=== PATIENT | male | born 1990 | race Caucasian/White ===

== ENCOUNTER 2023-08-25 19:06 | Inpatient (IN) | payer SELFPAY ==
[2023-08-25] MEDS ORDERED: MAG HYDROX/AL HYDROX/SIMETH 30 ML UNIT-DOSE CUP ONE (20:03)
[2023-08-25] MEDS ORDERED: ONDANSETRON 4 MG/2 ML VIAL ONE (20:03)
[2023-08-25] MEDS ORDERED: FAMOTIDINE 20 MG/50 ML IVPB 20 MG/50 ML MG IVPB ONE (20:03)
[2023-08-25] MEDS ORDERED: ACETAMINOPHEN INJECTION 100 ML IVPB ONE (20:03)
[2023-08-25] MEDS: ACETAMINOPHEN 1000 MG/100 ML BAG IVPB ONE (20:26)
[2023-08-25] MEDS: ONDANSETRON 4 MG/2 ML VIAL IVPUSH ONE (20:26)
[2023-08-25] MEDS: FAMOTIDINE 20 MG/50 ML IVPB 20 MG/50 ML MG IVPB ONE (20:26)
[2023-08-25] MEDS: LACTATED RINGERS SOLUTION 1000 ML INFUS.BAG IV ONE (20:27)
[2023-08-25] MEDS: MAG HYDROX/AL HYDROX/SIMETH 30 ML UNIT-DOSE CUP PO ONE (20:27)
[2023-08-25 20:33] LABS: BASO % 0.5 % (0-2.0); EOS % 0.1 % (0-4.5); HEMATOCRIT 45.7 % (35.4-49); LYMPH % 9.3 % (8-40); MCH 30.2 pg (25.7-33.7); MCHC 34.9 g/dl (32.0-35.9); MEAN CELL VOLUME 86.6 fl (80-96); MEAN PLT VOLUME 8.3 fl (7.5-11.1); MONO % 5.1 % (3.8-10.2); PLATELET COUNT 229 10^3/uL (134-434); RBC 5.28 M/mm3 (4.00-5.60); RDW 13.4 % (11.9-15.9)
[2023-08-25 20:46] LABS: POTASSIUM 4.5 mmol/L (3.5-5.1)
[2023-08-25 20:48] LABS: CALCIUM 9.4 mg/dL (8.5-10.1)
[2023-08-25 20:49] LABS: ALBUMIN 3.8 g/dl (3.4-5.0); BLOOD UREA NITROGEN 9.9 mg/dL (7-18); MAGNESIUM 2.2 mg/dL (1.8-2.4)
[2023-08-25 20:50] LABS: CREATININE 0.9 mg/dL (0.55-1.3)
[2023-08-25 20:53] LABS: BILIRUBIN,TOTAL 1.6 mg/dL (0.2-1); TOT PROT 7.8 g/dl (6.4-8.2)
[2023-08-25 20:56] LABS: LACTIC ACID 2.3 mmol/L (0.4-2.0)
[2023-08-25 22:02] LABS: VENOUS BASE EXCESS 2.2 mmol/L (-2-2); VENOUS O2 SATURATION 95.6 % (70-80); VENOUS PCO2 36.9 mmHg (38-52); VENOUS PH 7.462 (7.310-7.410)
[2023-08-26] MEDS ORDERED: morphine SULFATE 4 MG/ML VIAL ONE (00:18)
[2023-08-26] MEDS ORDERED: PIPERACILLIN/TAZOB 4.5 GM 4.5 GM/100 ML BAG IVPB ONE (00:21)
[2023-08-26] MEDS: PIPERACILLIN/TAZOB 4.5 GM 4.5 GM in DEXTROSE 5%-WATER 100 ML IVPB ONE (00:40)
[2023-08-26] MEDS: morphine CARPU-JECT 4 MG/1 ML DISP.SYRIN IVPUSH ONE (00:41)
[2023-08-26] MEDS: DEXTROSE 5%-NORMAL SALINE 1,000 ML IV SCH (00:41)
[2023-08-26 01:09] LABS: POTASSIUM 3.6 mmol/L (3.5-5.1)
[2023-08-26 01:11] LABS: CALCIUM 8.8 mg/dL (8.5-10.1)
[2023-08-26 01:13] LABS: ALBUMIN 3.5 g/dl (3.4-5.0); BLOOD UREA NITROGEN 8.8 mg/dL (7-18)
[2023-08-26 01:15] LABS: CREATININE 0.7 mg/dL (0.55-1.3)
[2023-08-26 01:17] LABS: TOT PROT 7.1 g/dl (6.4-8.2)
[2023-08-26 01:18] LABS: BILIRUBIN,TOTAL 1.6 mg/dL (0.2-1)
[2023-08-26] MEDS ORDERED: NAPROXEN 500 MG TABLET ONE (01:26)
[2023-08-26] MEDS: SODIUM CHLORIDE 1,000 ML IV SCH ×2 (01:33→08:55)
[2023-08-26] MEDS: NAPROXEN 250 MG TABLET PO SCH (01:33)
[2023-08-26 02:36] LABS: MAGNESIUM 2.1 mg/dL (1.8-2.4)
[2023-08-26 02:39] LABS: BILIRUBIN,DIRECT 0.5 mg/dL (0.0-0.2)
[2023-08-26 08:09] LABS: BASO % 0.3 % (0-2.0); EOS % 1.5 % (0-4.5); HEMATOCRIT 38.8 % (35.4-49); HEMOGLOBIN 13.5 GM/dL (11.7-16.9); LYMPH % 18.9 % (8-40); MCH 30.1 pg (25.7-33.7); MCHC 34.8 g/dl (32.0-35.9); MEAN CELL VOLUME 86.5 fl (80-96); MEAN PLT VOLUME 8.1 fl (7.5-11.1); MONO % 6.2 % (3.8-10.2); NEUT % 73.1 % (42.8-82.8); PLATELET COUNT 180 10^3/uL (134-434); RBC 4.48 M/mm3 (4.00-5.60); RDW 13.3 % (11.9-15.9); WHITE BLOOD COUNT 9.2 K/mm3 (4.0-10.0)
[2023-08-26 08:13] LABS: ALBUMIN 3.1 g/dl (3.4-5.0); INR 1.08 (0.83-1.09); PROTHROMBIN TIME (PATIENT) 12.4 SEC (9.7-13.0)
[2023-08-26 08:14] LABS: POTASSIUM 3.4 mmol/L (3.5-5.1)
[2023-08-26 08:16] LABS: BILIRUBIN,DIRECT 0.5 mg/dL (0.0-0.2)
[2023-08-26 08:18] LABS: BILIRUBIN,TOTAL 1.8 mg/dL (0.2-1); CALCIUM 8.3 mg/dL (8.5-10.1); TOT PROT 6.2 g/dl (6.4-8.2)
[2023-08-26 08:19] LABS: ALBUMIN 3.1 g/dl (3.4-5.0); BLOOD UREA NITROGEN 8.4 mg/dL (7-18); MAGNESIUM 2.2 mg/dL (1.8-2.4)
[2023-08-26 08:22] LABS: CREATININE 0.7 mg/dL (0.55-1.3)
[2023-08-26 08:23] LABS: BILIRUBIN,TOTAL 1.8 mg/dL (0.2-1); PHOSPHOROUS 3.6 mg/dL (2.5-4.9); TOT PROT 6.2 g/dl (6.4-8.2)
[2023-08-26] MEDS: PIPERACILLIN/TAZOB 3.375 GM 3.375 GM in DEXTROSE 5%-WATER - 50 ML IVPB SCH (08:55)
[2023-08-26] MEDS: POTASSIUM CHLORIDE ORAL LIQUID 20 MEQ/15 ML PO ONE (10:37)
[2023-08-26] MEDS: LACTATED RINGERS SOLUTION 1,000 ML/1,000 ML INFUS.BAG IV SCH (15:19)
[2023-08-27] MEDS: ACETAMINOPHEN 325 MG TABLET (FP) PO PRN (05:53)
[2023-08-27] MEDS: PIPERACILLIN/TAZOB 3.375 GM 3.375 GM in DEXTROSE 5%-WATER - 50 ML IVPB SCH (09:52)
[2023-08-27 09:56] LABS: BASO % 0.4 % (0-2.0); EOS % 2.5 % (0-4.5); HEMATOCRIT 37.2 % (35.4-49); HEMOGLOBIN 13.1 GM/dL (11.7-16.9); LYMPH % 20.7 % (8-40); MCH 30.5 pg (25.7-33.7); MCHC 35.2 g/dl (32.0-35.9); MEAN CELL VOLUME 86.7 fl (80-96); MEAN PLT VOLUME 8.5 fl (7.5-11.1); MONO % 6.3 % (3.8-10.2); NEUT % 70.1 % (42.8-82.8); PLATELET COUNT 186 10^3/uL (134-434); RDW 13.4 % (11.9-15.9); WHITE BLOOD COUNT 12.2 K/mm3 (4.0-10.0)
[2023-08-27 10:33] LABS: POTASSIUM 3.4 mmol/L (3.5-5.1)
[2023-08-27 10:50] LABS: ALBUMIN 2.9 g/dl (3.4-5.0); BLOOD UREA NITROGEN 8.3 mg/dL (7-18); CALCIUM 8.2 mg/dL (8.5-10.1); MAGNESIUM 2.1 mg/dL (1.8-2.4)
[2023-08-27 10:53] LABS: CREATININE 0.6 mg/dL (0.55-1.3)
[2023-08-27 10:54] LABS: BILIRUBIN,TOTAL 1.8 mg/dL (0.2-1); TOT PROT 6.2 g/dl (6.4-8.2)
[2023-08-27 22:06] LABS: EPI CELLS 1 /uL (0-25.1); HYALINE CASTS 0 /uL (0-3.1); PH,URINE 6.5 (5.0-8.0); URINE APPEARANCE Clear; URINE BACTERIA 0 /uL (0-1359); URINE BILIRUBIN Negative (NEGATIVE); URINE COLOR Yellow; URINE GLUCOSE (UA) Negative (NEGATIVE); URINE KETONE >=160 (NEGATIVE); URINE LEUK ESTERASE Negative (NEGATIVE); URINE NITRITE Negative (NEGATIVE); URINE PROTEIN 30 (NEGATIVE); URINE RBC 9 /uL (0-23.9); URINE WBC 2 /uL (0-25.8)
[2023-08-28 07:57] LABS: BASO % 0.3 % (0-2.0); HEMATOCRIT 36.9 % (35.4-49); HEMOGLOBIN 12.7 GM/dL (11.7-16.9); LYMPH % 20.6 % (8-40); MCH 30.1 pg (25.7-33.7); MCHC 34.4 g/dl (32.0-35.9); MEAN CELL VOLUME 87.4 fl (80-96); MEAN PLT VOLUME 8.2 fl (7.5-11.1); MONO % 8.1 % (3.8-10.2); PLATELET COUNT 205 10^3/uL (134-434); RBC 4.23 M/mm3 (4.00-5.60); RDW 13.5 % (11.9-15.9)
[2023-08-28 08:15] LABS: POTASSIUM 3.3 mmol/L (3.5-5.1)
[2023-08-28 08:18] LABS: ALBUMIN 2.6 g/dl (3.4-5.0); BLOOD UREA NITROGEN 5.7 mg/dL (7-18); MAGNESIUM 1.9 mg/dL (1.8-2.4)
[2023-08-28 08:21] LABS: CREATININE 0.5 mg/dL (0.55-1.3)
[2023-08-28 08:22] LABS: BILIRUBIN,TOTAL 1.7 mg/dL (0.2-1)
[2023-08-28] MEDS: KCL 10 MEQ IVPB 10 MEQ/100 ML INFUS.BAG IVPB SCH (10:35)
[2023-08-28] MEDS: POLYETHYLENE GLYCOL (HEALTHYLAX) 3350 17 GM PACKET PO ONE (13:58)
[2023-08-28] MEDS: ACETAMINOPHEN 1000 MG/100 ML BAG IVPB PRN (16:59)
[2023-08-29 08:06] LABS: BASO % 0.3 % (0-2.0); EOS % 3.6 % (0-4.5); HEMATOCRIT 36.3 % (35.4-49); HEMOGLOBIN 12.8 GM/dL (11.7-16.9); LYMPH % 19.3 % (8-40); MCH 30.7 pg (25.7-33.7); MCHC 35.3 g/dl (32.0-35.9); MEAN PLT VOLUME 7.7 fl (7.5-11.1); NEUT % 67.8 % (42.8-82.8); PLATELET COUNT 256 10^3/uL (134-434); RBC 4.17 M/mm3 (4.00-5.60); RDW 13.4 % (11.9-15.9); WHITE BLOOD COUNT 9.1 K/mm3 (4.0-10.0)
[2023-08-29 08:26] LABS: POTASSIUM 3.4 mmol/L (3.5-5.1)
[2023-08-29 08:30] LABS: ALBUMIN 2.5 g/dl (3.4-5.0)
[2023-08-29 08:32] LABS: BLOOD UREA NITROGEN 4.2 mg/dL (7-18); CALCIUM 7.9 mg/dL (8.5-10.1); CREATININE 0.5 mg/dL (0.55-1.3)
[2023-08-29 08:34] LABS: BILIRUBIN,TOTAL 1.3 mg/dL (0.2-1)
[2023-08-29] MEDS: POLYETHYLENE GLYCOL (HEALTHYLAX) 3350 17 GM PACKET PO SCH (10:13)
[2023-08-29] MEDS: ACETAMINOPHEN 1000 MG/100 ML BAG IVPB PRN (12:36)
[2023-08-29] MEDS: POTASSIUM CHLORIDE ORAL LIQUID 20 MEQ/15 ML PO ONE (15:37)
[2023-08-29] MEDS: ENOXAPARIN NA (PORCINE) 40 MG/0.4 ML DISP.SYRIN SQ SCH (15:37)
[2023-08-29] MEDS: TRIMETHOBENZAMIDE HCL 200MG/2ML INJ IM ONE (23:09)
[2023-08-30] MEDS: TRIMETHOBENZAMIDE HCL 200MG/2ML INJ IM ONE (06:08)
[2023-08-30 08:41] LABS: POTASSIUM 3.5 mmol/L (3.5-5.1)
[2023-08-30 08:44] LABS: CALCIUM 8.2 mg/dL (8.5-10.1)
[2023-08-30 08:45] LABS: BLOOD UREA NITROGEN 4.7 mg/dL (7-18)
[2023-08-30 08:48] LABS: CREATININE 0.4 mg/dL (0.55-1.3)
[2023-08-30 10:59] LABS: ALBUMIN 2.5 g/dl (3.4-5.0)
[2023-08-30 11:04] LABS: TOT PROT 6.1 g/dl (6.4-8.2)
[2023-08-30] MEDS: LACTATED RINGERS SOLUTION 1,000 ML/1,000 ML INFUS.BAG IV SCH (11:26)
[2023-08-30 11:37] LABS: BASO % 0.4 % (0-2.0); HEMATOCRIT 36.6 % (35.4-49); HEMOGLOBIN 12.9 GM/dL (11.7-16.9); LYMPH % 23.6 % (8-40); MCH 30.5 pg (25.7-33.7); MCHC 35.2 g/dl (32.0-35.9); MEAN CELL VOLUME 86.7 fl (80-96); MEAN PLT VOLUME 7.7 fl (7.5-11.1); MONO % 9.7 % (3.8-10.2); NEUT % 62.3 % (42.8-82.8); PLATELET COUNT 290 10^3/uL (134-434); RBC 4.22 M/mm3 (4.00-5.60); RDW 13.5 % (11.9-15.9); WHITE BLOOD COUNT 9.4 K/mm3 (4.0-10.0)
[2023-08-30] MEDS: ACETAMINOPHEN 1000 MG/100 ML BAG IVPB ONE (16:00)
[2023-08-30] MEDS: ONDANSETRON 4 MG/2 ML VIAL IVPUSH ONE (16:00)
[2023-08-31] MEDS ORDERED: MIDAZOLAM HCL 2 MG/2 ML SINGLE DOSE VIAL ONE (13:36)
[2023-08-31] MEDS ORDERED: FENTANYL CITRATE/PF 50 MCG/ML VIAL ONE ×3 (13:36→15:46)
[2023-08-31] MEDS ORDERED: PROPOFOL 20 ML ONE ×2 (13:36→14:58)
[2023-08-31] MEDS ORDERED: cefOXitin SODIUM 2 GM VIAL (RESTRICTED TO ID) IVPB ONE (13:41)
[2023-08-31] MEDS ORDERED: SUGAMMADEX SODIUM 200 MG/2 ML VIAL ONE (13:47)
[2023-08-31] MEDS: cefOXitin SODIUM 1 GM VIAL (RESTRICTED TO ID) IVPB ONE (14:02)
[2023-08-31] MEDS ORDERED: KETOROLAC TROMETHAMINE 30 MG/1 ML VIAL ONE (14:04)
[2023-08-31] MEDS ORDERED: DEXAMETHASONE SOD PHOSPHATE 4 MG/1 ML VIAL ONE ×2 (14:04)
[2023-08-31] MEDS ORDERED: ONDANSETRON 4 MG/2 ML VIAL ONE (14:04)
[2023-08-31] MEDS: BUPIVACAINE HCL/PF 0.5% (5MG/ML) 10 ML VIAL IJ ONE (14:24)
[2023-08-31] MEDS ORDERED: ONDANSETRON 4 MG/2 ML VIAL IVPUSH PRN ×2 (15:12→15:25)
[2023-08-31] MEDS ORDERED: LACTATED RINGERS SOLUTION 1,000 ML IV SCH (15:15)
[2023-08-31] MEDS ORDERED: oxyCODONE HCL 5 MG TABLET PO PRN (15:21)
[2023-08-31] MEDS: LACTATED RINGERS SOLUTION 1,000 ML/1,000 ML INFUS.BAG IV SCH (15:25)
[2023-08-31] MEDS: ACETAMINOPHEN 1000 MG/100 ML BAG IVPB ONE ×2 (15:38→16:58)
[2023-08-31] MEDS: LACTATED RINGERS SOLUTION 1,000 ML IV SCH (16:57)
[2023-08-31] MEDS ORDERED: KETOROLAC TROMETHAMINE 15 MG/ML VIAL IVPUSH PRN (22:00)
[2023-09-01] MEDS: oxyCODONE HCL 5 MG TABLET PO PRN (00:30)
[2023-09-01 13:29] VITALS: BMI 32.2
[2023-09-01 14:39] VITALS: BP 120/85; PULSE 74; RESP 18; TEMP 98.1
[2023-09-01] MEDS: ENOXAPARIN NA (PORCINE) 40 MG/0.4 ML DISP.SYRIN SQ SCH (14:40)
[2023-09-01] MEDS: POLYETHYLENE GLYCOL (HEALTHYLAX) 3350 17 GM PACKET PO SCH (14:40)
== END 2023-09-01 15:06 | disposition home or self-care (01) | DRG 263 ==
LOC: JER 19:06 → JERBED 23:05 → OBSVTOIN 23:44 → J8W 08-26 04:47
PROVIDERS: ADMIT Internal Medicine; ATTEND Nurse Practitioner Family
PROC: 0FT44ZZ Resection of Gallbladder, Percutaneous Endoscopic Approach (ICD-10-PCS; principal; 2023-08-31 14:13)
DX: K85.10 Biliary acute pancreatitis without necrosis or infection (principal); E87.20 Acidosis, unspecified; K76.0 Fatty (change of) liver, not elsewhere classified; E66.9 Obesity, unspecified; K80.10 Calculus of gallbladder with chronic cholecystitis without obstruction; F10.10 Alcohol abuse, uncomplicated; I45.10 Unspecified right bundle-branch block; J98.11 Atelectasis; K66.0 Peritoneal adhesions (postprocedural) (postinfection); R74.01 Elevation of levels of liver transaminase levels; Z68.32 Body mass index [BMI] 32.0-32.9, adult
CPT/HCPCS: 36415; 71045-TC-FY; 71046-TC-FY; 74170-TC; 74181-TC; 76705-TC; 80048; 80053; 80076; 81003; 82248; 82803; 83605; 83690; 83735; 84100; 84484; 85025; 85610; 86140; 86704; 86803; 86850; 86900; 86901; 87040; 87340; 87517; 88304-TC; 93005; 93010; 94760; 99285-25; G0378; J0131; Q9967